=== PATIENT | female | born 1990 | race Caucasian/White ===

== ENCOUNTER 2022-10-14 00:41 | Day surgery (SDC) | payer OTHER, BC, MEDICAID, SELFPAY ==
[2022-10-04 14:29] VITALS: BMI 22.4
--- NOTE | 2022-10-04 14:36 | PC.NURSE ---
Report to the Outpatient Waiting Room, entrance under the green pavilion located off [facility], at time 0830 on date 10/14/22. Planned Procedure Time: 1030. Time changes happen often and if your time is changed the preop area will call you the afternoon before. - You and your visitor will be asked to self-screen and do not enter if you have any COVID symptoms. - Only one visitor is requested with a max of two and NO children visitors are allowed at this time. - The patient visitor may be requested to leave or wait in car when not with patient due to distancing restrictions. - A mask is REQUIRED within the hospital. Patients may have clear liquids (water, carbonated beverages, clear teas, apple juice) until 3 hours prior to surgery with a maximum of 20 ounces. - No food from midnight until time of surgery Take the following medications with a SIP of water the morning of surgery: ZOLOFT Medications to discontinue per physician: N/A Date to take last dose: N/A Please no make-up, nail french, hairspray, perfume, deodorant, or body powder the day of surgery. No jewelry (including any body piercings) or valuables the day of surgery, leave them at home. Please take a shower or bath the night before, or the morning of, surgery with an antibacterial soap. Wear comfortable, loose fitting clothing. - Jewelry must be removed prior to entering the operating room. Rings and piercings that are not removed may be cut off. - The hospital will not accept responsibility for valuables. - Please leave all valuables, including medications, at home the day of surgery. If you are going home after surgery, a licensed compactor driver must drive you home. - NO public transportation without another adult if you receive anesthesia. - We recommend that an adult stay with you for 24 hours following discharge. - We also recommend that you do not drive, make important decision, drink alcoholic beverages, or take any drugs that were not prescribed by your health care provider for at least 24 hours after your discharge time. Follow any additional instructions given to you from your surgeon. If you or anyone in your household have experienced Covid symptoms in the past week, please notify your surgeon or the nurse liaison at the phone number below for possible testing. Telephone instructions given to PT - RADHA ORTIZ and asked if any additional questions and then verbalized understanding. Patient advised to call surgeon office or pre surgery nurse liaison [phone] if any additional questions.
[2022-10-14] VITALS (9 sets, daily range): BP systolic 98–118; BP diastolic 69–83; PULSE 60–77; RESP 12–16; TEMP 36.2–36.5; O2SAT 99–100
[2022-10-14] MEDS: ACETAMINOPHEN 500 MG TABLET 1000 MG PO (08:58)
[2022-10-14] MEDS: LACTATED RINGERS 1,000 ML 30 ML IV CONT (09:04)
--- NOTE | 2022-10-14 09:36 | PM.IMHP ---
H&P: HPI History of Present Illness Date/Time: 10/14/22 09:36 Chief Complaint: nasal dyspnea, chronic rhinitis Narrative: nasal septal deviation Review of Systems Review of Systems: All systems reviewed & are unremarkable except as noted in HPI and below [facility] Social History Social History Smoking packs per day: 0.5 Smoking cigarettes per day: 10.0 Years smoked: 13 Smoking pack-years: 6.50 Smoking status: Former smoker Tobacco type: cigarettes Smoking end date: 04/29/22 Alcohol intake: current Drinks per week: 3 Substance use: current Substance use type: marijuana Living arrangements: with family Spiritual care concerns: No Meds Home Medications and Allergies Home Medications Medication Instructions Recorded Confirmed Type azelastine 137 mcg (0.1 %) nasal 2 spray intranasal Q12H 10/04/22 10/14/22 History spray aerosol dextroamphetamine-amphetamine 10 20 mg PO QNOON 10/04/22 10/14/22 History mg tablet dextroamphetamine-amphetamine ER 30 mg PO DAILY 10/04/22 10/14/22 History 30 mg 24hr capsule,extend release fluticasone propionate 50 1 spray intranasal Q12H 10/04/22 10/14/22 History mcg/actuation nasal spray,suspension montelukast 10 mg tablet 10 mg PO HS 10/04/22 10/14/22 History sertraline 50 mg tablet (Zoloft) 50 mg PO DAILY 10/04/22 10/14/22 History spironolactone 100 mg tablet 150 mg PO DAILY 10/04/22 10/14/22 History Allergies Allergy/AdvReac Type Severity Reaction Status Date / Time clindamycin Allergy Intermediate Rash Verified 10/14/22 08:53 codeine Allergy Intermediate Hallucinati Verified 10/14/22 08:53 ng Penicillins Allergy Intermediate Rash Verified 10/14/22 08:53 Vital Signs Vital Signs - 24 hr 10/14/22 08:34 Temperature 36.2 C L Pulse Rate 72 Respiratory Rate 16 Blood Pressure 112/71 Pulse Oximetry 99 Oxygen Delivery Room Air Exam Narrative: right septal deviation, turbinate hypertrophy, occlusion of right maxillary sinus. rest of exam wnl Assessment and Plan Assessment and plan (1) Deviated nasal septum: Code(s): J34.2 - Deviated nasal septum Status: Acute Plan Here for septoplasty, turbinoplasty. r/b/a reviewed, all questions answered, pt understands and agrees to proceed. refer to outpt H&P for full details
[2022-10-14] MEDS: OXYMETAZOLINE HCL 0.05% NAS 15 ML BTL (*BKC) 1 SPRAY NASAL (09:38)
--- NOTE | 2022-10-14 09:40 | WPDANESEPPF ---
Anes - Initial Pre Proc Eval Procedure: Operation Date: 10/14/22 10:30 Proposed Procedures p Septoplasty - Jose Carlos Hodges MD s Bilateral Turbinate Reduction - Jose Carlos Hodges MD Date/Time: 10/14/22 09:40 Surgeon: Jose Carlos Hodges MD Pre Op Diagnosis: deviated septum, bilateral hypertrophy Patient Data Age: 32 Gender: F Height: 1.65 m Weight: 61 kg Last Vital Signs Temp 97.2 F L 10/14/22 08:34 Pulse 72 10/14/22 08:34 Resp 16 10/14/22 08:34 BP 112/71 10/14/22 08:34 Pulse Ox 99 10/14/22 08:34 O2 Del Method Room Air 10/14/22 08:34 Allergies Allergy/AdvReac Type Severity Reaction Status Date / Time clindamycin Allergy Intermediate Rash Verified 10/14/22 08:53 codeine Allergy Intermediate Hallucinati Verified 10/14/22 08:53 ng Penicillins Allergy Intermediate Rash Verified 10/14/22 08:53 Home Medications Medication Instructions Recorded Confirmed Type azelastine 137 mcg (0.1 %) nasal 2 spray intranasal Q12H 10/04/22 10/14/22 History spray aerosol dextroamphetamine-amphetamine 10 20 mg PO QNOON 10/04/22 10/14/22 History mg tablet dextroamphetamine-amphetamine ER 30 mg PO DAILY 10/04/22 10/14/22 History 30 mg 24hr capsule,extend release fluticasone propionate 50 1 spray intranasal Q12H 10/04/22 10/14/22 History mcg/actuation nasal spray,suspension montelukast 10 mg tablet 10 mg PO HS 10/04/22 10/14/22 History sertraline 50 mg tablet (Zoloft) 50 mg PO DAILY 10/04/22 10/14/22 History spironolactone 100 mg tablet 150 mg PO DAILY 10/04/22 10/14/22 History Patient hx anesthesia problems: none Family hx anesthesia problems: none Results Review: All pre-operative results and documents have been reviewed as part of the pre-operative evaluation. COUNTS INCLUDE 234 BEDS AT THE [facility] Social History Social History Smoking packs per day: 0.5 Smoking cigarettes per day: 10.0 Years smoked: 13 Smoking pack-years: 6.50 Smoking status: Former smoker Tobacco type: cigarettes Smoking end date: 04/29/22 Alcohol intake: current Drinks per week: 3 Substance use: current Substance use type: marijuana Living arrangements: with family Spiritual care concerns: No Anes - Eval Final PreProcedure Day of Procedure 10/14/22 09:40 Patient weight: normal Heart: regular rate and rhythm Lungs: clear to auscultation Airway: Mallampati scale class II Neurological: alert and oriented Last oral intake: >/= 8 hours ASA classification: II Emergent: no Anesthetic plan: proceed Anesthesia type and monitoring: general GIVS and standard monitoring Results Review: All pre-operative results and documents have been reviewed as part of the pre-operative evaluation. Informed Consent: The patient's anesthetic plan and its attendant risks and benefits were discussed with the patient/family/POA. Questions were solicited and answers provided to the satisfaction of the patient/family/POA.
--- NOTE | 2022-10-14 09:56 | WPDHPUPDATE1 ---
History and Physical Update Update Date/Time: 10/14/22 09:56 History and Physical has been reviewed, including an updated exam of the patient. There are NO changes in the patient's condition. Risks, benefits, and alternatives have been discussed and questions answered. Patient agrees to proceed with procedure.
[2022-10-14] MEDS: ceFAZolin 2 GM/D5W 50 ML 2 GM/50 ML BAG IVPB (10:01)
--- NOTE | 2022-10-14 10:53 | P.OP_ITS ---
Procedure Note - Detailed Date of Procedure 10/14/22 Pre-op Diagnosis deviated septum, bilateral hypertrophy Post-op Diagnosis Same Procedure Performed septoplasty, turbinoplasty Surgeon Jose Carlos Hodges MD Anesthesia General Indications deviated nasal septum Findings deviated to left caudally, to right posteriorly Description of Procedure DESCRIPTION OF PROCEDURE: ? After obtaining informed consent and proper site verification the patient was brought to the operating room and placed on the operating table in the supine position. They were placed under general endotracheal anesthesia by the anesthesia provider. The patient was then draped in standard fashion for septoplasty and turbinoplasty. A timeout was performed and the correct patient and procedure were verified. The nasal cavity was injected with 1% lidocaine with 1-100,000 epinephrine and packed with afrin-soaked cottonoid pledgets. ? Attention was then directed to the nasal septum. A hemitransfixion incision was made in the left caudal septum and a mucoperichondrial flap was elevated in the usual fashion. The flap was elevated under endoscopic visualization and the remainder of the case was performed with endoscopic assistance. Using a D- knife, an incision was made through the cartilaginous septum with care to preserve the appropriate caudal and dorsal ?L-strut? of cartilage. The cartilage was then disarticulated from the bony-cartilaginous junction and the deviated cartilage was removed. Further deviated bone and cartilage was removed from the maxillary crest and posterior bony septum with care to avoid injury to the mucoperichondrial flap using a combination of dissection and Mikael- Lester forceps. Once this was completed, the hemitransfixion incision was closed using simple interrupted 4-0 chromic suture. A quilting stitch to reapproximate the mucoperichondrial flaps was then placed using 4-0 plain gut suture on a Grady needle. ? Next attention was directed to the turbinates. Using a 0? telescope and 2mm turb inate blade microdebrider, a stab incision was made in the anterior face of the turbinate and dissection was carried posterior to perform submucosal resection. Next the turbinate was outfractured using a blunt instrument. A similar procedure was then performed on the right-hand side without difficulty. Faustin splints covered in mupirocin ointment were placed in the nasal cavity and secured to the membranous septum using a 3-0 Prolene suture. ?The patient was awakened from general anesthesia extubated in the operating room, and transported to the recovery room in stable condition without complication. Estimated Blood Loss 10 Drains No Packing Yes (faustin splints) Pathology None sent Complications No immediate complications Condition Stable Disposition PACU
== END 2022-10-14 12:50 | disposition home or self-care (01) ==
PROVIDERS: Visit Provider Otolaryngology
PROC: (CPT 30520; principal; 2022-10-14 10:30)
PROC: (CPT 30520; 2022-10-14 10:30)
DX: J34.2 Deviated nasal septum (principal); J34.3 Hypertrophy of nasal turbinates; Z87.891 Personal history of nicotine dependence; F12.90 Cannabis use, unspecified, uncomplicated
CPT/HCPCS: 30520; 30140; A9270; J0690; J1100; J2250; J2405; J2704; J3010; J7120